=== PATIENT | female | born 1950 | race African-American/Black ===

== ENCOUNTER 2019-03-22 05:24 | Inpatient (IN) ==
[2019-03-22] MEDS ORDERED: ceFAZolin 1,000 MG VIAL ONE (05:54)
[2019-03-22] MEDS ORDERED: VANCOMYCIN 1,000 MG VIAL ONE (05:54)
[2019-03-22] MEDS ORDERED: ceFAZolin 1,000 MG in SYRINGE 1 EACH IV ONE (06:00)
[2019-03-22] MEDS ORDERED: VANCOMYCIN INJ 1,000 MG in SODIUM CHLORIDE 0.9% 250 ML IV ONE (06:00)
[2019-03-22] MEDS: LACTATED RINGERS 1,000 ML IV SCH (07:34)
[2019-03-22] MEDS ORDERED: LORazepam 1 MG TABLET PO ONE (08:04)
[2019-03-22] MEDS ORDERED: ACETAMINOPHEN 500 MG TABLET PO ONE (08:04)
[2019-03-22] MEDS ORDERED: GABAPENTIN 400 MG CAPSULE PO ONE (08:04)
[2019-03-22] MEDS ORDERED: FAMOTIDINE 20 MG TABLET PO ONE (08:04)
[2019-03-22] MEDS ORDERED: GABAPENTIN 400 MG CAPSULE ONE (08:08)
[2019-03-22] MEDS ORDERED: LORazepam 1 MG TABLET ONE (08:08)
[2019-03-22] MEDS ORDERED: ACETAMINOPHEN 500 MG TABLET ONE (08:08)
[2019-03-22] MEDS ORDERED: FAMOTIDINE 20 MG TABLET ONE (08:09)
[2019-03-22] MEDS ORDERED: EPINEPHrine 1 MG/ML VIAL ONE (08:11)
[2019-03-22] MEDS ORDERED: DEXAMETHASONE 4 MG/1 ML VIAL ONE (08:11)
[2019-03-22] MEDS ORDERED: LACTATED RINGERS 1,000 ML IV ONE (08:11)
[2019-03-22] MEDS ORDERED: fentaNYL 100 MCG/2 ML VIAL ONE (08:11)
[2019-03-22] MEDS ORDERED: BUPIVACAINE 0.5% 50 ML VIAL ONE (08:11)
[2019-03-22] MEDS ORDERED: MIDAZOLAM 2 MG/2 ML VIAL ONE (08:11)
[2019-03-22] MEDS ORDERED: PROPOFOL 500 MG/50 ML BOTTLE IV ONE (08:11)
[2019-03-22] MEDS ORDERED: BUPIVACAINE SPINAL 0.75% 2 ML AMP SPINAL ONE (08:11)
[2019-03-22] MEDS ORDERED: SODIUM CHLORIDE 0.9% 100 ML IV ONE (08:12)
[2019-03-22] MEDS ORDERED: SODIUM CHLORIDE 0.9% 250 ML IV ONE (08:12)
[2019-03-22] MEDS ORDERED: TRANEXAMIC ACID 1,000 MG/10 ML VIAL ONE (08:56)
[2019-03-22] MEDS ORDERED: PROMETHAZINE 25 MG/1 ML VIAL IM PRN (10:39)
[2019-03-22] MEDS ORDERED: MAGNESIUM HYDROXIDE SUSP 30 ML UDCUP PO PRN (10:39)
[2019-03-22] MEDS ORDERED: diphenhydrAMINE CAP 25 MG CAPSULE PO PRN (10:39)
[2019-03-22] MEDS ORDERED: ONDANSETRON 4 MG/2 ML VIAL IV PRN (10:39)
[2019-03-22] MEDS ORDERED: MORPHINE 4 MG/1 ML VIAL IV PRN (10:39)
[2019-03-22] MEDS ORDERED: BISACODYL 10 MG SUPP RECTAL PRN (10:39)
[2019-03-22] MEDS ORDERED: LACTULOSE 20 GM/30 ML UDCUP PO PRN (10:39)
[2019-03-22] MEDS ORDERED: TEMAZEPAM 7.5 MG CAPSULE PO PRN (10:39)
[2019-03-22] MEDS ORDERED: HYDROmorphone 2 MG/1 ML VIAL ONE (10:56)
[2019-03-22] MEDS: IBUPROFEN 400 MG TABLET PO SCH ×2 (15:49→20:58)
[2019-03-22] MEDS: ceFAZolin 1,000 MG in SYRINGE 1 EACH IV SCH (19:53)
[2019-03-22] MEDS: DOCUSATE SODIUM 100 MG CAPSULE PO SCH (20:55)
[2019-03-22] MEDS: FONDAPARINUX 2.5 MG/0.5 ML SYRINGE SUBCUT SCH (20:55)
[2019-03-23] MEDS: ceFAZolin 1,000 MG in SYRINGE 1 EACH IV SCH ×3 (03:49→20:53)
[2019-03-23 05:52] LABS: Basophils % 0.2 % (0.0-0.8); Hematocrit 36.1 VOL% (35.7-47.0); Hemoglobin 11.3 GM/DL (12.0-16.0); Immature Granulocytes % 0.5 %; Immature Granulocytes Absolute 0.07 #; Lymphocytes % 15.2 % (21.3-54.2); Mean Corpuscular HGB Conc 31.3 GM/DL (32-36); Mean Corpuscular Volume 90.7 FL (87-102); Mean Platelet Volume 8.9 FL (9.6-12.0); Monocytes % 9.1 % (1.7-12.7); Platelet Count 287 T/CUMM (130-400); Red Blood Count 3.98 MC/CUMM (3.8-5.5); Red Cell Distribution Width 13.6 % (9.3-17.3); White Blood Count 12.9 T/CUMM (4-12)
[2019-03-23 06:14] LABS: Calcium 9.4 MG/DL (8.5-10.1); Osmolality,Calculated 284.1 MOS/KG (273-304)
[2019-03-23] MEDS: NIACIN 500 MG TABLET PO SCH (10:24)
[2019-03-23] MEDS: EZETIMIBE 10 MG TABLET PO SCH (10:24)
[2019-03-23] MEDS: IBUPROFEN 400 MG TABLET PO SCH ×3 (10:24→20:53)
[2019-03-23] MEDS: hydroCHLOROthiazide 25 MG TABLET PO SCH (10:24)
[2019-03-23] MEDS: POTASSIUM CHLORIDE 20 MEQ TABLET PO SCH (10:25)
[2019-03-23] MEDS: DOCUSATE SODIUM 100 MG CAPSULE PO SCH ×2 (10:25→20:54)
[2019-03-23] MEDS: ASPIRIN EC 81 MG TABLET PO SCH (10:25)
[2019-03-23] MEDS: FONDAPARINUX 2.5 MG/0.5 ML SYRINGE SUBCUT SCH (20:53)
[2019-03-24] MEDS: ceFAZolin 1,000 MG in SYRINGE 1 EACH IV SCH ×3 (03:07→19:28)
[2019-03-24] MEDS: hydroCHLOROthiazide 25 MG TABLET PO SCH (09:47)
[2019-03-24] MEDS: EZETIMIBE 10 MG TABLET PO SCH (09:47)
[2019-03-24] MEDS: DOCUSATE SODIUM 100 MG CAPSULE PO SCH ×2 (09:48→21:24)
[2019-03-24] MEDS: IBUPROFEN 400 MG TABLET PO SCH ×3 (09:48→21:24)
[2019-03-24] MEDS: NIACIN 500 MG TABLET PO SCH (09:48)
[2019-03-24] MEDS: ASPIRIN EC 81 MG TABLET PO SCH (09:48)
[2019-03-24] MEDS: POTASSIUM CHLORIDE 20 MEQ TABLET PO SCH (09:49)
[2019-03-24] MEDS: FONDAPARINUX 2.5 MG/0.5 ML SYRINGE SUBCUT SCH (21:23)
[2019-03-25] MEDS: ceFAZolin 1,000 MG in SYRINGE 1 EACH IV SCH ×3 (03:45→18:02)
[2019-03-25] MEDS: EZETIMIBE 10 MG TABLET PO SCH (09:04)
[2019-03-25] MEDS: NIACIN 500 MG TABLET PO SCH (09:04)
[2019-03-25] MEDS: hydroCHLOROthiazide 25 MG TABLET PO SCH (09:04)
[2019-03-25] MEDS: DOCUSATE SODIUM 100 MG CAPSULE PO SCH ×2 (09:04→21:00)
[2019-03-25] MEDS: IBUPROFEN 400 MG TABLET PO SCH ×3 (09:05→21:00)
[2019-03-25] MEDS: ASPIRIN EC 81 MG TABLET PO SCH (09:06)
[2019-03-25] MEDS: POTASSIUM CHLORIDE 20 MEQ TABLET PO SCH (09:06)
[2019-03-25] MEDS: FONDAPARINUX 2.5 MG/0.5 ML SYRINGE SUBCUT SCH (21:00)
[2019-03-26] MEDS: ceFAZolin 1,000 MG in SYRINGE 1 EACH IV SCH ×3 (02:59→18:16)
[2019-03-26 05:22] LABS: Basophils % 0.6 % (0.0-0.8); Eosinophils # 0.3 10*3/uL (0.0-0.87); Eosinophils % 3.8 % (0.00-10.9); Hematocrit 31.1 VOL% (35.7-47.0); Hemoglobin 9.8 GM/DL (12.0-16.0); Immature Granulocytes Absolute 0.07 #; Lymphocytes # 1.8 10*3/uL (1.4-4.0); Lymphocytes % 25.2 % (21.3-54.2); Mean Corpuscular HGB Conc 31.5 GM/DL (32-36); Mean Corpuscular Volume 90.1 FL (87-102); Mean Platelet Volume 8.7 FL (9.6-12.0); Neutrophils % 63.4 % (38.7-73.9); Platelet Count 284 T/CUMM (130-400); Red Blood Count 3.45 MC/CUMM (3.8-5.5); Red Cell Distribution Width 13.7 % (9.3-17.3); White Blood Count 7.1 T/CUMM (4-12)
[2019-03-26] MEDS: ASPIRIN EC 81 MG TABLET PO SCH (09:49)
[2019-03-26] MEDS: NIACIN 500 MG TABLET PO SCH (09:49)
[2019-03-26] MEDS: DOCUSATE SODIUM 100 MG CAPSULE PO SCH ×2 (09:49→20:59)
[2019-03-26] MEDS: IBUPROFEN 400 MG TABLET PO SCH ×3 (09:50→21:00)
[2019-03-26] MEDS: EZETIMIBE 10 MG TABLET PO SCH (09:52)
[2019-03-26] MEDS: POTASSIUM CHLORIDE 20 MEQ TABLET PO SCH (09:52)
[2019-03-26] MEDS: hydroCHLOROthiazide 25 MG TABLET PO SCH (09:52)
[2019-03-26] MEDS: FONDAPARINUX 2.5 MG/0.5 ML SYRINGE SUBCUT SCH (20:59)
[2019-03-27] MEDS: ceFAZolin 1,000 MG in SYRINGE 1 EACH IV SCH ×3 (02:38→18:03)
[2019-03-27] MEDS: POTASSIUM CHLORIDE 20 MEQ TABLET PO SCH (08:12)
[2019-03-27] MEDS: IBUPROFEN 400 MG TABLET PO SCH ×3 (08:12→20:06)
[2019-03-27] MEDS: EZETIMIBE 10 MG TABLET PO SCH (08:12)
[2019-03-27] MEDS: ASPIRIN EC 81 MG TABLET PO SCH (08:12)
[2019-03-27] MEDS: NIACIN 500 MG TABLET PO SCH (08:13)
[2019-03-27] MEDS: DOCUSATE SODIUM 100 MG CAPSULE PO SCH ×2 (08:13→20:06)
[2019-03-27] MEDS: hydroCHLOROthiazide 25 MG TABLET PO SCH (08:13)
[2019-03-27] MEDS: LACTATED RINGERS 1,000 ML IV SCH (10:50)
[2019-03-27] MEDS: FONDAPARINUX 2.5 MG/0.5 ML SYRINGE SUBCUT SCH (20:06)
[2019-03-28] MEDS: ceFAZolin 1,000 MG in SYRINGE 1 EACH IV SCH ×2 (03:12→11:04)
[2019-03-28] MEDS: ASPIRIN EC 81 MG TABLET PO SCH (08:15)
[2019-03-28] MEDS: EZETIMIBE 10 MG TABLET PO SCH (08:15)
[2019-03-28] MEDS: NIACIN 500 MG TABLET PO SCH (08:15)
[2019-03-28] MEDS: IBUPROFEN 400 MG TABLET PO SCH (08:15)
[2019-03-28] MEDS: POTASSIUM CHLORIDE 20 MEQ TABLET PO SCH (08:15)
[2019-03-28] MEDS: DOCUSATE SODIUM 100 MG CAPSULE PO SCH (08:15)
[2019-03-28] MEDS: hydroCHLOROthiazide 25 MG TABLET PO SCH (08:15)
[2019-03-28 11:26] VITALS: BP 112/63
== END 2019-03-28 13:45 | DRG 470 ==
LOC: N.SDSINP 05:24 → N.3E 11:43
PROVIDERS: ADMIT Orthopaedic Surgery; ATTEND Orthopaedic Surgery

== ENCOUNTER 2019-08-20 05:35 | Observation (INO) ==
[2019-08-20] MEDS ORDERED: SODIUM CHLORIDE 0.9% 500 ML IV STA (06:02)
[2019-08-20 06:17] LABS: Basophils % 0.3 % (0.0-0.8); Eosinophils % 0.3 % (0.00-10.9); Hemoglobin 12.8 GM/DL (12.0-16.0); Immature Granulocytes % 0.4 %; Immature Granulocytes Absolute 0.05 #; Lymphocytes # 1.9 10*3/uL (1.4-4.0); Lymphocytes % 16.5 % (21.3-54.2); Mean Corpuscular Volume 88.1 FL (87-102); Mean Platelet Volume 9.5 FL (9.6-12.0); Neutrophils % 75.5 % (38.7-73.9); Platelet Count 279 T/CUMM (130-400); Red Blood Count 4.54 MC/CUMM (3.8-5.5); White Blood Count 11.5 T/CUMM (4-12)
[2019-08-20 06:28] LABS: Bilirubin,Total 0.9 MG/DL (0.2-1.0); Calcium 9.1 MG/DL (8.5-10.1); Osmolality,Calculated 281.4 MOS/KG (273-304); Total Protein 7.7 G/DL (6.4-8.3)
[2019-08-20 07:08] LABS: Apearance,Urine CLEAR (Clear); Bilirubin,Urine Negative (Negative); Blood, Urine Negative (Negative); Glucose,Urine (UA) Negative (Negative); Ketones,Urine Negative (Negative); Mucus,Urine Occasional /LPF (Occasional); Nitrite,Urine Negative (Negative); Protein,Urine Negative; RBC,Urine 4 /HPF (0-4); Squamous Epithelial Cell,Urine Occasional /HPF (0-10); Urine Color Yellow (Yellow); Urine Specific Gravity 1.023 (1.001-1.035)
[2019-08-20] MEDS ORDERED: ACETAMINOPHEN 325 MG TABLET PO PRN (10:02)
[2019-08-20] MEDS ORDERED: ONDANSETRON 4 MG/2 ML VIAL IV PRN (10:02)
[2019-08-21 05:31] LABS: Basophils % 0.4 % (0.0-0.8); Eosinophils # 0.1 10*3/uL (0.0-0.87); Eosinophils % 0.9 % (0.00-10.9); Hematocrit 36.6 VOL% (35.7-47.0); Immature Granulocytes % 0.3 %; Immature Granulocytes Absolute 0.02 #; Lymphocytes # 1.9 10*3/uL (1.4-4.0); Lymphocytes % 27.7 % (21.3-54.2); Mean Corpuscular HGB Conc 32.8 GM/DL (32-36); Mean Corpuscular Volume 86.7 FL (87-102); Mean Platelet Volume 9.3 FL (9.6-12.0); Monocytes % 6.5 % (1.7-12.7); Neutrophils % 64.2 % (38.7-73.9); Platelet Count 269 T/CUMM (130-400); Red Blood Count 4.22 MC/CUMM (3.8-5.5); Red Cell Distribution Width 15.4 % (9.3-17.3); White Blood Count 6.8 T/CUMM (4-12)
[2019-08-21 06:02] LABS: Albumin 3.3 G/DL (3.4-5.0); Bilirubin,Direct 1.07 MG/DL (0.0-0.20); Bilirubin,Indirect 0.5 MG/DL (0.0-1.0); Bilirubin,Total 1.6 MG/DL (0.2-1.0); Calcium 8.6 MG/DL (8.5-10.1); Osmolality,Calculated 291.4 MOS/KG (273-304); Total Protein 6.6 G/DL (6.4-8.3)
[2019-08-21 06:08] LABS: Risk Ratio 2.73; VLDL CHOLESTEROL 12.4 MG/DL
[2019-08-21 08:09] VITALS: BP 104/45
[2019-08-21 08:44] LABS: Hepatitis B Core IgM Quant < 0.05 Index; Hepatitis B Surface Ag Quant 0.16 Index; Hepatitis B Surface Ag Result Negative (Negative); Hepatitis C Virus Ab Quant 0.13 Index; Hepatitis C Virus Ab Result Negative (Negative)
[2019-08-21] MEDS ORDERED: PANTOPRAZOLE 40 MG TABLET PO SCH (09:00)
[2019-08-21] MEDS ORDERED: hydroCHLOROthiazide 25 MG TABLET PO SCH (09:00)
[2019-08-21] MEDS ORDERED: POTASSIUM CHLORIDE 20 MEQ TABLET PO SCH (09:00)
[2019-08-21] MEDS ORDERED: ASPIRIN EC 81 MG TABLET PO SCH (09:00)
== END 2019-08-21 11:00 | disposition home or self-care (01) ==
LOC: N.EDINP 05:35 → N.ED 05:35 → SUATTDRO 10:02 → N.EDINP 10:39 → N.2W 10:54
PROVIDERS: ADMIT Internal Medicine; ATTEND Internal Medicine Nephrology

== ENCOUNTER 2020-12-08 16:35 | Inpatient (IN) ==
[2020-12-08] MEDS ORDERED: SODIUM CHLORIDE 0.9% 1,000 ML IV STA ×2 (17:16→19:55)
[2020-12-08] MEDS ORDERED: ONDANSETRON 4 MG/2 ML VIAL IV STA (17:16)
[2020-12-08] MEDS ORDERED: PANTOPRAZOLE 40 MG VIAL IV STA (17:18)
[2020-12-08] MEDS ORDERED: HYDROmorphone 2 MG/1 ML VIAL ONE (18:26)
[2020-12-08] MEDS ORDERED: HYDROmorphone 2 MG/1 ML VIAL IV STA (18:31)
[2020-12-08 19:20] LABS: Basophils % 0.3 % (0.0-0.8); Eosinophils % 0.1 % (0.00-10.9); Hematocrit 39.1 VOL% (35.7-47.0); Hemoglobin 12.6 GM/DL (12.0-16.0); Immature Granulocytes % 0.5 %; Immature Granulocytes Absolute 0.07 #; Lymphocytes % 6.8 % (21.3-54.2); Mean Corpuscular HGB Conc 32.2 GM/DL (32-36); Mean Corpuscular Volume 89.9 FL (87-102); Monocytes % 4.9 % (1.7-12.7); Neutrophils % 87.4 % (38.7-73.9); Platelet Count 335 T/CUMM (130-400); Red Blood Count 4.35 MC/CUMM (3.8-5.5); Red Cell Distribution Width 13.9 % (9.3-17.3); White Blood Count 14.7 T/CUMM (4-12)
[2020-12-08] MEDS ORDERED: PIPERACILLIN/TAZOBACTAM 3,375 MG in SODIUM CHLORIDE 0.9% 100 ML IV STA (19:55)
[2020-12-08 20:13] LABS: Alanine Aminotransferase 68 U/L (13-56); Albumin 3.6 G/DL (3.4-5.0); Alkaline Phosphatase 93 U/L (45-117); Aspartate Amino Transferase 100 U/L (0-37); Blood Urea Nitrogen 11 MG/DL (7-18); Calcium 9.4 MG/DL (8.5-10.1); Carbon Dioxide 27 MMOL/L (21-32); Estimated Glom Filtration Rate 94 ML/MIN; Glucose 122 MG/DL (74-106); Osmolality,Calculated 276.5 MOS/KG (273-304); Potassium 3.5 MMOL/L (3.5-5.1); Sodium 139 MMOL/L (136-145); Total Protein 7.6 G/DL (6.4-8.2)
[2020-12-08 21:07] LABS: Bilirubin,Urine Negative (Negative); Blood, Urine Negative (Negative); Glucose,Urine (UA) Negative (Negative); Ketones,Urine Negative (Negative); Nitrite,Urine Negative (Negative); Protein,Urine Negative; RBC,Urine 1 /HPF (0-4); Squamous Epithelial Cell,Urine Occasional /HPF (0-10); Urine Appearance CLEAR (Clear); Urine Color Straw (Yellow); Urine Urobilinogen < 2.0 EU/DL (0.2-1.0); WBC,Urine <1 /HPF (0-6)
[2020-12-08] MEDS ORDERED: DEXTROSE 50% 25 GM/50 ML VIAL IV PRN (21:08)
[2020-12-08] MEDS ORDERED: ONDANSETRON 4 MG/2 ML VIAL IV PRN (21:08)
[2020-12-08] MEDS ORDERED: GLUCAGON 1 MG VIAL IM PRN (21:08)
[2020-12-08] MEDS ORDERED: HYDROmorphone 2 MG/1 ML VIAL IV PRN (21:20)
[2020-12-08] MEDS ORDERED: SODIUM CHLORIDE 0.9% 1,000 ML IV ONE (21:21)
[2020-12-08] MEDS: SODIUM CHLORIDE 0.9% 1,000 ML IV SCH (23:30)
[2020-12-09] MEDS: ENOXAPARIN 40 MG/0.4 ML SYRINGE SUBCUT SCH ×2 (00:33→22:32)
[2020-12-09 02:49] LABS: Basophils % 0.3 % (0.0-0.8); Hematocrit 38.7 VOL% (35.7-47.0); Hemoglobin 12.7 GM/DL (12.0-16.0); Immature Granulocytes % 0.2 %; Immature Granulocytes Absolute 0.02 #; Lymphocytes # 1.2 10*3/uL (1.4-4.0); Lymphocytes % 13.2 % (21.3-54.2); Mean Corpuscular HGB Conc 32.8 GM/DL (32-36); Mean Corpuscular Volume 89.4 FL (87-102); Mean Platelet Volume 9.2 FL (9.6-12.0); Monocytes % 4.8 % (1.7-12.7); Neutrophils % 81.5 % (38.7-73.9); Platelet Count 308 T/CUMM (130-400); Red Blood Count 4.33 MC/CUMM (3.8-5.5); Red Cell Distribution Width 13.9 % (9.3-17.3)
[2020-12-09 03:38] LABS: Albumin 3.4 G/DL (3.4-5.0); Bilirubin,Total 0.4 MG/DL (0.2-1.0); Calcium 9.1 MG/DL (8.5-10.1); Osmolality,Calculated 279.3 MOS/KG (273-304); Potassium 3.5 MMOL/L (3.5-5.1); Risk Ratio 4.96; Total Protein 7.2 G/DL (6.4-8.2); VLDL CHOLESTEROL 15.2 MG/DL
[2020-12-09] MEDS: SODIUM CHLORIDE 0.9% 1,000 ML IV SCH ×5 (03:55→22:35)
[2020-12-09] MEDS: PIPERACILLIN/TAZOBACTAM 3,375 MG in SODIUM CHLORIDE 0.9% 100 ML IV SCH ×3 (05:32→22:33)
[2020-12-09] MEDS ORDERED: HYDROmorphone 2 MG/1 ML VIAL IV PRN ×2 (13:40)
[2020-12-10 04:24] LABS: Albumin 2.9 G/DL (3.4-5.0); Bilirubin,Total 0.5 MG/DL (0.2-1.0); Calcium 8.7 MG/DL (8.5-10.1); Potassium 3.3 MMOL/L (3.5-5.1); Total Protein 6.5 G/DL (6.4-8.2)
[2020-12-10] MEDS: PIPERACILLIN/TAZOBACTAM 3,375 MG in SODIUM CHLORIDE 0.9% 100 ML IV SCH ×3 (05:20→23:00)
[2020-12-10] MEDS: SODIUM CHLORIDE 0.9% 1,000 ML IV SCH ×2 (07:41→10:00)
[2020-12-10] MEDS: POTASSIUM CHLORIDE 20 MEQ TABLET PO SCH (09:27)
[2020-12-10] MEDS: hydroCHLOROthiazide 25 MG TABLET PO SCH (09:27)
[2020-12-10] MEDS: PANTOPRAZOLE 40 MG VIAL IV SCH (09:30)
[2020-12-10] MEDS: SODIUM CHLOR 0.9% KCL 20 MEQ 20 MEQ/1,000 ML BAG IV SCH (09:32)
[2020-12-10] MEDS: ENOXAPARIN 40 MG/0.4 ML SYRINGE SUBCUT SCH (22:58)
[2020-12-11] MEDS: PIPERACILLIN/TAZOBACTAM 3,375 MG in SODIUM CHLORIDE 0.9% 100 ML IV SCH (05:43)
[2020-12-11] MEDS ORDERED: ceFAZolin 1,000 MG in SYRINGE 1 EACH IV ONE (06:00)
[2020-12-11] MEDS ORDERED: SUCCINYLCHOLINE 200 MG/10 ML VIAL ONE (06:45)
[2020-12-11] MEDS ORDERED: DEXAMETHASONE 4 MG/1 ML VIAL ONE (06:45)
[2020-12-11] MEDS ORDERED: LIDOCAINE 2% 5 ML VIAL ONE (06:45)
[2020-12-11] MEDS ORDERED: ROCURONIUM 50 MG/5 ML VIAL IV ONE (06:45)
[2020-12-11] MEDS ORDERED: fentaNYL 100 MCG/2 ML VIAL ONE (06:45)
[2020-12-11] MEDS ORDERED: ONDANSETRON 4 MG/2 ML VIAL ONE (06:45)
[2020-12-11] MEDS ORDERED: propofoL 200 MG/20 ML VIAL IV ONE (06:45)
[2020-12-11] MEDS ORDERED: TISSUE ADHESIVE 1 EACH APPLICATOR TOP ONE ×2 (06:47→08:18)
[2020-12-11 06:50] LABS: Basophils # 0.1 10*3/uL (0.0-0.2); Basophils % 0.6 % (0.0-0.8); Eosinophils # 0.4 10*3/uL (0.0-0.87); Eosinophils % 4.4 % (0.00-10.9); Hematocrit 39.2 VOL% (35.7-47.0); Hemoglobin 12.6 GM/DL (12.0-16.0); Immature Granulocytes % 0.3 %; Immature Granulocytes Absolute 0.03 #; Lymphocytes # 3.7 10*3/uL (1.4-4.0); Lymphocytes % 40.6 % (21.3-54.2); Mean Corpuscular HGB Conc 32.1 GM/DL (32-36); Mean Corpuscular Volume 88.9 FL (87-102); Monocytes % 6.8 % (1.7-12.7); Neutrophils % 47.3 % (38.7-73.9); Platelet Count 322 T/CUMM (130-400); Red Blood Count 4.41 MC/CUMM (3.8-5.5); Red Cell Distribution Width 14.1 % (9.3-17.3); White Blood Count 9.1 T/CUMM (4-12)
[2020-12-11 07:16] LABS: Albumin 3.4 G/DL (3.4-5.0); Bilirubin,Total 0.6 MG/DL (0.2-1.0); Calcium 9.6 MG/DL (8.5-10.1); Osmolality,Calculated 274.5 MOS/KG (273-304); Potassium 3.3 MMOL/L (3.5-5.1); Total Protein 7.8 G/DL (6.4-8.2)
[2020-12-11] MEDS ORDERED: LACTATED RINGERS 1,000 ML IV SCH (07:30)
[2020-12-11] MEDS ORDERED: PHENYLEPHRINE 1 MG/10 ML SYRINGE IV ONE (07:53)
[2020-12-11] MEDS ORDERED: SUGAMMADEX 200 MG/2 ML VIAL IV ONE (08:10)
[2020-12-11] MEDS ORDERED: LABETALOL 20 MG/4 ML SYRINGE IV ONE (08:17)
[2020-12-11] MEDS ORDERED: KETOROLAC 30 MG/1 ML VIAL ONE (08:17)
[2020-12-11] MEDS ORDERED: SEVOFLURANE 1 UNIT/15 MINUTE INH ONE (08:22)
[2020-12-11] MEDS ORDERED: ONDANSETRON 4 MG/2 ML VIAL IV PRN (08:58)
[2020-12-11] MEDS ORDERED: HYDROmorphone 2 MG/1 ML VIAL IV PRN (08:58)
[2020-12-11] MEDS: POTASSIUM CHLORIDE 20 MEQ TABLET PO SCH (10:23)
[2020-12-11] MEDS: amLODIPine 10 MG TABLET PO SCH (10:24)
[2020-12-11] MEDS: SODIUM CHLOR 0.9% KCL 20 MEQ 20 MEQ/1,000 ML BAG IV SCH (10:30)
[2020-12-11] MEDS: PANTOPRAZOLE 40 MG VIAL IV SCH (10:31)
[2020-12-11] MEDS: hydroCHLOROthiazide 25 MG TABLET PO SCH (10:31)
[2020-12-11] MEDS: ENOXAPARIN 40 MG/0.4 ML SYRINGE SUBCUT SCH (23:25)
[2020-12-12] MEDS: amLODIPine 10 MG TABLET PO SCH (08:09)
[2020-12-12] MEDS: POTASSIUM CHLORIDE 20 MEQ TABLET PO SCH (08:09)
[2020-12-12] MEDS ORDERED: PANTOPRAZOLE 40 MG TABLET PO SCH (09:00)
[2020-12-12 11:08] VITALS: BP 110/48
== END 2020-12-12 14:20 | disposition home or self-care (01) | DRG 418 ==
LOC: N.ED 16:35 → N.EDINP 21:08 → N.3E 23:05
PROVIDERS: ADMIT Internal Medicine; ATTEND Internal Medicine
PROC: LAPCHOL (2020-12-11 07:17)